=== PATIENT | male | born 1935 | race Caucasian/White ===

== ENCOUNTER 2022-07-04 09:16 | Inpatient (IN) | payer SELFPAY ==
[2022-07-04] MEDS ORDERED: ACETAMINOPHEN 1000 MG/100 ML BAG IVPB ONE (10:19)
[2022-07-04] MEDS ORDERED: ONDANSETRON 4 MG/2 ML VIAL IVPUSH ONE (10:19)
[2022-07-04] MEDS ORDERED: SODIUM CHLORIDE 0.9% 500 ML INFUS.BAG IV ONE (10:20)
[2022-07-04] MEDS ORDERED: ACETAMINOPHEN INJECTION 100 ML IVPB ONE (10:51)
[2022-07-04] MEDS ORDERED: ONDANSETRON 4 MG/2 ML VIAL ONE (10:52)
[2022-07-04 11:58] LABS: BASO % 0.1 % (0-2.0); HEMATOCRIT 44.1 % (35.4-49); HEMOGLOBIN 14.8 GM/dL (11.7-16.9); LYMPH % 13.2 % (8-40); MCH 30.8 pg (25.7-33.7); MCHC 33.5 g/dl (32.0-35.9); MEAN PLT VOLUME 10.3 fl (7.5-11.1); MONO % 3.3 % (3.8-10.2); NEUT % 83.4 % (42.8-82.8); PLATELET COUNT 228 10^3/uL (134-434); RBC 4.79 M/mm3 (4.00-5.60); RDW 13.3 % (11.9-15.9); WHITE BLOOD COUNT 7.9 K/mm3 (4.0-10.0)
[2022-07-04 12:12] LABS: CALCIUM 9.7 mg/dL (8.5-10.1)
[2022-07-04 12:13] LABS: BLOOD UREA NITROGEN 21.6 mg/dL (7-18); MAGNESIUM 1.6 mg/dL (1.8-2.4)
[2022-07-04 12:18] LABS: BILIRUBIN,TOTAL 1.4 mg/dL (0.2-1)
[2022-07-04 12:21] LABS: LACTIC ACID 2.6 mmol/L (0.4-2.0)
[2022-07-04 14:31] LABS: EPI CELLS 2 /uL (0-25.1); HYALINE CASTS 0 /uL (0-3.1); URINE APPEARANCE CLEAR; URINE BACTERIA 0 /uL (0-1359); URINE BILIRUBIN NEGATIVE (NEGATIVE); URINE COLOR YELLOW; URINE GLUCOSE (UA) 3+ (NEGATIVE); URINE KETONE TRACE (NEGATIVE); URINE LEUK ESTERASE NEGATIVE (NEGATIVE); URINE NITRITE NEGATIVE (NEGATIVE); URINE PROTEIN 1+ (NEGATIVE); URINE RBC 4 /uL (0-23.9); URINE WBC 1 /uL (0-25.8)
[2022-07-04] MEDS ORDERED: PIPERACILLIN/TAZOB 4.5 GM 4.5 GM in DEXTROSE 5%-WATER 100 ML IVPB ONE (18:05)
[2022-07-04] MEDS ORDERED: PIPERACILLIN/TAZOB 4.5 GM 4.5 GM/100 ML BAG IVPB ONE (18:37)
[2022-07-04 19:53] LABS: ACTIVATED PTT 29.2 SECONDS (25.2-36.5); INR 1.08 (0.83-1.09); PROTHROMBIN TIME (PATIENT) 12.4 SEC (9.7-13.0)
[2022-07-04 21:17] LABS: BILIRUBIN,DIRECT 1.1 mg/dL (0.0-0.2)
[2022-07-04] MEDS: INSULIN SLIDING SCALE (NOVOLOG) 1 VIAL SQ SCH (21:33)
[2022-07-04] MEDS: DEXTROSE 5%-LACTATED RINGERS 1,000 ML IV SCH (21:34)
[2022-07-05 00:41] VITALS: BMI 23.1
[2022-07-05] MEDS: PIPERACILLIN/TAZOB 3.375 GM 3.375 GM in DEXTROSE 5%-WATER - 50 ML IVPB SCH ×4 (03:09→20:15)
[2022-07-05] MEDS: INSULIN SLIDING SCALE (NOVOLOG) 1 VIAL SQ SCH ×4 (06:32→21:57)
[2022-07-05] MEDS ORDERED: PEG 3350/NA SULF BICARB CL/KCL 4000 ML SOLN.RECON PO ONE (09:06)
[2022-07-05 09:18] LABS: HEMATOCRIT 35.3 % (35.4-49); HEMOGLOBIN 12.1 GM/dL (11.7-16.9); MCH 30.8 pg (25.7-33.7); MCHC 34.1 g/dl (32.0-35.9); MEAN CELL VOLUME 90.4 fl (80-96); MEAN PLT VOLUME 10.3 fl (7.5-11.1); PLATELET COUNT 190 10^3/uL (134-434); RBC 3.91 M/mm3 (4.00-5.60); RDW 13.2 % (11.9-15.9); WHITE BLOOD COUNT 10.1 K/mm3 (4.0-10.0)
[2022-07-05] MEDS: DEXTROSE 5%-LACTATED RINGERS 1,000 ML IV SCH ×2 (09:49→21:59)
[2022-07-05] MEDS ORDERED: PANTOPRAZOLE SODIUM 40 MG VIAL IVPUSH SCH (10:00)
[2022-07-05 10:03] LABS: BLOOD UREA NITROGEN 16.9 mg/dL (7-18); CALCIUM 8.4 mg/dL (8.5-10.1)
[2022-07-05 10:04] LABS: MAGNESIUM 1.7 mg/dL (1.8-2.4)
[2022-07-05 10:07] LABS: BILIRUBIN,DIRECT 2.1 mg/dL (0.0-0.2); CREATININE 1.2 mg/dL (0.55-1.3); PHOSPHOROUS 2.7 mg/dL (2.5-4.9)
[2022-07-05 10:08] LABS: BILIRUBIN,TOTAL 2.6 mg/dL (0.2-1); TOT PROT 6.1 g/dl (6.4-8.2)
[2022-07-05 10:11] LABS: ALBUMIN 2.8 g/dl (3.4-5.0)
[2022-07-05] MEDS: PANTOPRAZOLE 40 MG TABLET PO SCH (10:28)
[2022-07-05] MEDS ORDERED: FENTANYL CITRATE/PF 50 MCG/ML VIAL ONE (11:05)
[2022-07-05] MEDS ORDERED: IOHEXOL 300 MG/ML INFUS..BTL IV ONE (12:06)
[2022-07-05] MEDS ORDERED: MAGNESIUM SULF 50% (8.12 MEQ/2 ML-1 GM VIAL) IVPB ONE (15:02)
[2022-07-05] MEDS ORDERED: INSULIN (NOVOLOG) ASPART 100 UNITS/ML 10ML VIAL ONE (16:33)
[2022-07-05] MEDS ORDERED: BISACODYL 5 MG TABLET.DR (FP) PO ONE (20:00)
[2022-07-05 21:03] LABS: EPI CELLS 5 /uL (0-25.1); HYALINE CASTS 1 /uL (0-3.1); URINE APPEARANCE CLEAR; URINE BACTERIA 3 /uL (0-1359); URINE BILIRUBIN 2+ (NEGATIVE); URINE COLOR DK YELLOW; URINE GLUCOSE (UA) 3+ (NEGATIVE); URINE KETONE TRACE (NEGATIVE); URINE LEUK ESTERASE NEGATIVE (NEGATIVE); URINE NITRITE NEGATIVE (NEGATIVE); URINE PROTEIN 2+ (NEGATIVE); URINE RBC 9 /uL (0-23.9); URINE WBC 4 /uL (0-25.8)
[2022-07-06] MEDS: BENZOCAINE/MENTH/CETYLPYRD CL 1 EACH LOZENGE MM PRN ×2 (01:40→14:04)
[2022-07-06] MEDS: PIPERACILLIN/TAZOB 3.375 GM 3.375 GM in DEXTROSE 5%-WATER - 50 ML IVPB SCH ×4 (02:16→22:13)
[2022-07-06] MEDS ORDERED: INSULIN (NOVOLOG) ASPART 100 UNITS/ML 10ML VIAL ONE (05:20)
[2022-07-06] MEDS: INSULIN SLIDING SCALE (NOVOLOG) 1 VIAL SQ SCH ×4 (06:33→22:14)
[2022-07-06 08:25] LABS: BASO % 0.2 % (0-2.0); HEMATOCRIT 35.8 % (35.4-49); HEMOGLOBIN 12.1 GM/dL (11.7-16.9); LYMPH % 15.3 % (8-40); MCHC 33.8 g/dl (32.0-35.9); MEAN CELL VOLUME 91.7 fl (80-96); MEAN PLT VOLUME 10.1 fl (7.5-11.1); MONO % 8.3 % (3.8-10.2); NEUT % 73.2 % (42.8-82.8); PLATELET COUNT 178 10^3/uL (134-434); RDW 13.3 % (11.9-15.9); WHITE BLOOD COUNT 6.7 K/mm3 (4.0-10.0)
[2022-07-06 08:54] LABS: MAGNESIUM 1.9 mg/dL (1.8-2.4)
[2022-07-06 08:58] LABS: CREATININE 1.1 mg/dL (0.55-1.3)
[2022-07-06 09:00] LABS: CALCIUM 8.5 mg/dL (8.5-10.1); TOT PROT 5.6 g/dl (6.4-8.2)
[2022-07-06 09:01] LABS: ALBUMIN 2.5 g/dl (3.4-5.0)
[2022-07-06 09:02] LABS: BILIRUBIN,DIRECT 1.9 mg/dL (0.0-0.2)
[2022-07-06 09:04] LABS: BILIRUBIN,TOTAL 2.2 mg/dL (0.2-1)
[2022-07-06] MEDS: PANTOPRAZOLE 40 MG TABLET PO SCH (10:11)
[2022-07-06] MEDS: DEXTROSE 5%-LACTATED RINGERS 1,000 ML IV SCH (22:06)
[2022-07-07] MEDS: PIPERACILLIN/TAZOB 3.375 GM 3.375 GM in DEXTROSE 5%-WATER - 50 ML IVPB SCH ×2 (02:03→08:55)
[2022-07-07] MEDS: INSULIN SLIDING SCALE (NOVOLOG) 1 VIAL SQ SCH ×5 (06:14→23:12)
[2022-07-07 08:58] LABS: HEMATOCRIT 36.9 % (35.4-49); HEMOGLOBIN 12.8 GM/dL (11.7-16.9); MCH 31.5 pg (25.7-33.7); MCHC 34.7 g/dl (32.0-35.9); MEAN CELL VOLUME 90.9 fl (80-96); MEAN PLT VOLUME 9.5 fl (7.5-11.1); PLATELET COUNT 203 10^3/uL (134-434); RBC 4.06 M/mm3 (4.00-5.60); RDW 13.1 % (11.9-15.9); WHITE BLOOD COUNT 5.3 K/mm3 (4.0-10.0)
[2022-07-07 08:59] LABS: PROTHROMBIN TIME (PATIENT) 11.5 SEC (9.7-13.0)
[2022-07-07] MEDS ORDERED: BUPIVACAINE HCL/PF 0.5% (5MG/ML) 10 ML VIAL ONE (09:08)
[2022-07-07] MEDS ORDERED: BUPIVACAINE HCL/PF 0.5% (5MG/ML) 10 ML VIAL IJ ONE ×3 (09:13→09:53)
[2022-07-07] MEDS: PANTOPRAZOLE 40 MG TABLET PO SCH (09:42)
[2022-07-07 10:00] LABS: ALBUMIN 2.5 g/dl (3.4-5.0); CALCIUM 8.9 mg/dL (8.5-10.1)
[2022-07-07 10:01] LABS: BLOOD UREA NITROGEN 5.8 mg/dL (7-18)
[2022-07-07 10:04] LABS: CREATININE 1.2 mg/dL (0.55-1.3)
[2022-07-07 10:05] LABS: BILIRUBIN,TOTAL 1.1 mg/dL (0.2-1); TOT PROT 5.8 g/dl (6.4-8.2)
[2022-07-07] MEDS ORDERED: NEOSTIGMINE METHYLSULFATE 0.5 MG/ML - 10 ML MDV ONE (11:29)
[2022-07-07] MEDS ORDERED: ONDANSETRON 4 MG/2 ML VIAL IVPUSH PRN ×2 (11:57→12:17)
[2022-07-07] MEDS ORDERED: LACTATED RINGERS SOLUTION 1,000 ML IV SCH (12:00)
[2022-07-07] MEDS ORDERED: oxyCODONE HCL 5 MG TABLET PO PRN ×2 (12:17)
[2022-07-07] MEDS ORDERED: ACETAMINOPHEN 500 MG TABLET (FP) PO PRN (12:17)
[2022-07-07] MEDS ORDERED: DOCUSATE SODIUM 100 MG CAPSULE (FP) PO PRN (12:17)
[2022-07-07] MEDS ORDERED: DEXTROSE 5%-LACTATED RINGERS 1,000 ML IV SCH (12:17)
[2022-07-07] MEDS ORDERED: BENZOCAINE/MENTH/CETYLPYRD CL 1 EACH LOZENGE MM PRN (12:17)
[2022-07-07] MEDS ORDERED: SODIUM CHLORIDE 1,000 ML IV SCH (13:30)
[2022-07-07 13:54] VITALS: RESP 20
[2022-07-07] MEDS ORDERED: INSULIN (NOVOLOG) ASPART 100 UNITS/ML 10ML VIAL ONE (21:37)
[2022-07-08] MEDS: INSULIN SLIDING SCALE (NOVOLOG) 1 VIAL SQ SCH ×2 (07:02→11:43)
[2022-07-08 09:40] LABS: BASO % 0.1 % (0-2.0); EOS % 0.4 % (0-4.5); HEMATOCRIT 38.5 % (35.4-49); HEMOGLOBIN 13.1 GM/dL (11.7-16.9); LYMPH % 21.3 % (8-40); MCH 31.4 pg (25.7-33.7); MCHC 34.1 g/dl (32.0-35.9); MEAN CELL VOLUME 92.1 fl (80-96); MEAN PLT VOLUME 9.6 fl (7.5-11.1); MONO % 10.6 % (3.8-10.2); NEUT % 67.6 % (42.8-82.8); PLATELET COUNT 208 10^3/uL (134-434); RBC 4.18 M/mm3 (4.00-5.60); RDW 13.4 % (11.9-15.9); WHITE BLOOD COUNT 8.7 K/mm3 (4.0-10.0)
[2022-07-08] MEDS ORDERED: PANTOPRAZOLE 40 MG TABLET PO SCH (10:00)
[2022-07-08 10:04] LABS: CALCIUM 8.5 mg/dL (8.5-10.1)
[2022-07-08 10:05] LABS: ALBUMIN 2.6 g/dl (3.4-5.0)
[2022-07-08 10:08] LABS: CREATININE 1.1 mg/dL (0.55-1.3)
[2022-07-08 16:03] VITALS: BP 132/78; PULSE 80; TEMP 99.1
== END 2022-07-08 16:55 | disposition home or self-care (01) | DRG 263 ==
LOC: JER 09:16 → JERBED 18:09 → J8W 20:54
PROVIDERS: ADMIT Internal Medicine
PROC: 0FC98ZZ Extirpation of Matter from Common Bile Duct, Via Natural or Artificial Opening Endoscopic (ICD-10-PCS; 2022-07-07)
PROC: BF14YZZ Fluoroscopy of Gallbladder, Bile Ducts and Pancreatic Ducts using Other Contrast (ICD-10-PCS; 2022-07-07)
PROC: 0FT44ZZ Resection of Gallbladder, Percutaneous Endoscopic Approach (ICD-10-PCS; principal; 2022-07-07 10:00)
DX: K80.01 Calculus of gallbladder with acute cholecystitis with obstruction (principal); K21.9 Gastro-esophageal reflux disease without esophagitis; D64.9 Anemia, unspecified; N40.0 Benign prostatic hyperplasia without lower urinary tract symptoms; E86.0 Dehydration; R80.9 Proteinuria, unspecified; I10 Essential (primary) hypertension; E11.9 Type 2 diabetes mellitus without complications
CPT/HCPCS: 36415; 71045-TC-FY; 71275-TC; 74174-TC; 74181-TC; 76000-TC-FY; 76705-TC; 80053; 81003; 82150; 82248; 82570; 82962; 83605; 83690; 83735; 84100; 84156; 84484; 85025; 85027; 85610; 85730; 86140; 87040; 87086; 88304-TC; 93005; 93010; 94760; 97116-GP; 97161-GP; 99285-25; C9803-CS; Q9967; U0003; U0005